=== PATIENT | female | born 1975 ===

== ENCOUNTER 2024-09-03 05:16 | Day surgery (SDC) | payer OTHER ==
[2024-08-26 10:48] VITALS: BP 144/91
[~2024-09-03] VITALS: Ht 172.7 cm; Wt 136.1 kg
[~2024-09-03 05:16] MED LIST: CARVEDILOL ER40 MG PO; COZAAR100 MG PO
[2024-09-03] MEDS ORDERED: HEMOSTATIC MATRIX 1 KIT KIT TOP ONE (07:45)
[2024-09-03] MEDS ORDERED: METRONIDAZOLE/SODIUM CHLORIDE 500 MG/100 ML PIGGYBACK IV ONE (07:45)
[2024-09-03] MEDS ORDERED: BUPIVACAINE HCL 30 ML VIAL IJ ONE (07:45)
[2024-09-03] MEDS ORDERED: DIBUCAINE 30 GM TUBE RECTAL ONE (07:45)
[2024-09-03] MEDS ORDERED: CEFTRIAXONE SODIUM 2,000 MG VIAL IV ONE (07:45)
[2024-09-03] MEDS ORDERED: POVIDONE-IODINE 118 ML BOTT TOP ONE (08:00)
[2024-09-03] MEDS ORDERED: LIDOCAINE HCL 1%/EPINEPHRINE 20ML VIAL IJ ONE (08:00)
[2024-09-03] MEDS ORDERED: PERCOCET 5-3251 EACH PO (08:15)
[2024-09-03] MEDS ORDERED: RECTICARE30 GM TOP (08:15)
[2024-09-03] MEDS ORDERED: ONDANSETRON HCL 2 MG/ML VIAL IV ONE (08:40)
== END 2024-09-03 12:40 | disposition home or self-care (01) ==
LOC: CIR.AMB 05:16
PROVIDERS: ATTEND Surgery
DX: D12.9 Benign neoplasm of anus and anal canal (principal); K62.0 Anal polyp; K62.1 Rectal polyp